=== PATIENT | male | born 1995 | race Caucasian/White ===

== ENCOUNTER 2017-01-12 13:35 | Emergency (ER) | payer OTHER, SELFPAY ==
[~2017-01-12] VITALS: Ht 172.7 cm; Wt 145.0 kg
[2017-01-12] MEDS ORDERED: diphenhydrAMINE INJ 50MG/ML VIAL (J1200) IV ONE (15:00)
[2017-01-12] MEDS ORDERED: NS 500 ML IV ONE (15:00)
[2017-01-12] MEDS ORDERED: KETOROLAC 30 MG/ML VIAL (J1885) IV ONE (15:00)
[2017-01-12] MEDS ORDERED: METOCLOPRAMIDE INJ 10MG/2ML VIAL (J2765) IV ONE (15:00)
[2017-01-12 16:37] VITALS: BP 134/73
== END 2017-01-12 16:51 | disposition home or self-care (01) ==
LOC: M ED 13:35
DX: R51 Headache (principal); Z88.2 Allergy status to sulfonamides
CPT/HCPCS: 96361; 96374; 96375; 99283; J1200; J1885; J2765